=== PATIENT | female | born 1975 | race Caucasian/White ===

== ENCOUNTER 2020-11-27 11:48 | Inpatient (IN) | payer OTHER ==
[2020-11-27 14:15] LABS: BASOPHIL 0.4 % (0-2); EOSINOPHIL 0.1 % (0-5); HCT 43.7 % (37.0-47.0); HGB 14.3 g/dl (12.5-16.0); LYMPHOCYTE 12.4 % (15-48); MCH 29.9 pg (25.0-31.0); MCHC 32.7 g/dL (32.0-36.0); MCV 91.4 fL (78.0-100.0); MONOCYTE 8.1 % (0-12); MPV 10.2 fL (6.0-9.5); NEUTROPHIL 78.6 % (41-80); NRBC 0; PLT 211 K/uL (150-400); RBC 4.78 M/uL (4.20-5.40); RDW 14.6 % (11.5-14.0); WBC 16.3 K/uL (4.0-10.5)
[2020-11-27 14:34] LABS: BILIRUBIN - TOTAL 2.7 mg/dL (0.2-1.0); BUN/CREAT RATIO (CALC) 18.1 RATIO; CREATININE 0.72 mg/dL (0.51-0.95); POTASSIUM 4.6 mmol/L (3.5-5.1)
[2020-11-27 15:28] LABS: ECSTASY (MDMA) NEGATIVE (NEGATIVE); MARIJUANA (THC) NEGATIVE (NEGATIVE); METHADONE NEGATIVE (NEGATIVE); OPIATES NEGATIVE (NEGATIVE)
[2020-11-27 15:29] LABS: AMPHETAMINES POSITIVE (NEGATIVE); BARBITURATES NEGATIVE (NEGATIVE); OXYCODONE NEGATIVE (NEGATIVE)
[2020-11-27] MEDS ORDERED: AMLODIPINE BESYL5 MG PO (20:03)
[2020-11-27] MEDS ORDERED: CLARITIN10 MG PO (20:04)
[2020-11-27] MEDS ORDERED: COZAAR100 MG PO (20:05)
[2020-11-27] MEDS ORDERED: DIAZEPAM5 MG PO (20:07)
[2020-11-28 06:54] LABS: BASOPHIL 0.4 % (0-2); EOSINOPHIL 0.1 % (0-5); HCT 41.8 % (37.0-47.0); HGB 13.7 g/dl (12.5-16.0); LYMPHOCYTE 13.7 % (15-48); MCH 30.2 pg (25.0-31.0); MCHC 32.8 g/dL (32.0-36.0); MCV 92.1 fL (78.0-100.0); MONOCYTE 8.7 % (0-12); MPV 10.5 fL (6.0-9.5); NEUTROPHIL 76.5 % (41-80); NRBC 0; PLT 195 K/uL (150-400); RBC 4.54 M/uL (4.20-5.40); RDW 14.6 % (11.5-14.0); WBC 17.1 K/uL (4.0-10.5)
[2020-11-28 07:10] LABS: ALBUMIN 2.7 g/dL (3.4-5.0); BILIRUBIN - TOTAL 2.4 mg/dL (0.2-1.0); CREATININE 0.88 mg/dL (0.51-0.95); GLOBULIN (CALCULATION) 2.9 g/dL; POTASSIUM 3.9 mmol/L (3.5-5.1); TOTAL PROTEIN 5.6 g/dL (6.4-8.2)
[2020-11-28 07:25] LABS: CKMB 0.6 ng/mL (0.0-3.6)
[2020-11-29 05:07] LABS: BUN/CREAT RATIO (CALC) 27.1 RATIO; CREATININE 0.85 mg/dL (0.51-0.95); MAGNESIUM 2.2 mg/dL (1.8-2.4); POTASSIUM 4.2 mmol/L (3.5-5.1)
--- NOTE | 2020-11-29 15:37 | NUR ---
11/29/20 Patient has been accepted to [facility] pending bed availability.
[2020-11-29] MEDS ORDERED: LOPRESSOR25 MG PO (20:20)
== END 2020-11-30 10:30 | disposition other institution (70) | DRG 280 ==
LOC: FER 11:48 → FTCU 15:44
PROVIDERS: Internal Medicine Cardiovascular Disease; Nurse Practitioner; Nurse Practitioner Family; ADMIT Internal Medicine
DX: I11.0 Hypertensive heart disease with heart failure (principal); J18.9 Pneumonia, unspecified organism; I21.A1 Myocardial infarction type 2; I50.20 Unspecified systolic (congestive) heart failure; I25.10 Atherosclerotic heart disease of native coronary artery without angina pectoris; Z20.822 Contact with and (suspected) exposure to COVID-19; I42.8 Other cardiomyopathies; R91.8 Other nonspecific abnormal finding of lung field; F17.210 Nicotine dependence, cigarettes, uncomplicated; Z79.899 Other long term (current) drug therapy
CPT/HCPCS: 36415; 71045; 71275; 80048; 80053; 80061; 80305; 82553; 83605; 83735; 83880; 84145; 84484; 85025; 85379; 93005; 94640; J1650; J1940; J2060; J2270; J2543; Q9967; U0002

== ENCOUNTER 2020-12-19 20:26 | Emergency (ER) | payer OTHER ==
[~2020-12-19 20:26] MED LIST: AMLODIPINE BESYL5 MG PO; CLARITIN10 MG PO; COZAAR100 MG PO; DIAZEPAM5 MG PO; LOPRESSOR25 MG PO
[2020-12-19 20:59] LABS: BASOPHIL 0.5 % (0-2); EOSINOPHIL 1.5 % (0-5); HCT 43.9 % (37.0-47.0); HGB 14.1 g/dl (12.5-16.0); LYMPHOCYTE 28.1 % (15-48); MCH 29.1 pg (25.0-31.0); MCHC 32.1 g/dL (32.0-36.0); MCV 90.7 fL (78.0-100.0); MONOCYTE 8.6 % (0-12); MPV 10.1 fL (6.0-9.5); NRBC 0; PLT 239 K/uL (150-400); RBC 4.84 M/uL (4.20-5.40); RDW 14.5 % (11.5-14.0); WBC 10.2 K/uL (4.0-10.5)
[2020-12-19 21:11] LABS: ALBUMIN 3.2 g/dL (3.4-5.0); CREATININE 1.04 mg/dL (0.51-0.95); GLOBULIN (CALCULATION) 3.3 g/dL; POTASSIUM 4.3 mmol/L (3.5-5.1); TOTAL PROTEIN 6.5 g/dL (6.4-8.2)
[2020-12-19 21:19] LABS: PRO-BNP 6239 pg/mL (<125)
[2020-12-19 21:50] LABS: BILIRUBIN NEGATIVE (NEGATIVE); BLOOD NEGATIVE Ery/uL (NEGATIVE); CLARITY CLEAR (CLEAR); COLOR YELLOW (YELLOW); GLUCOSE (U) NORMAL (NORMAL); LEUKOCYTES NEGATIVE Leu/uL (NEGATIVE); NITRITE NEGATIVE (NEGATIVE); PROTEIN TRACE (LOW) mg/dL (NEGATIVE)
[2020-12-20] MEDS ORDERED: VIBRAMYCIN100 MG PO (03:00)
[2020-12-20] MEDS ORDERED: LASIX40 MG PO (03:00)
== END 2020-12-20 03:16 | disposition home or self-care (01) ==
LOC: FER 20:26
PROVIDERS: Emergency Medicine Emergency Medical Services
DX: I11.0 Hypertensive heart disease with heart failure (principal); I50.9 Heart failure, unspecified; I43 Cardiomyopathy in diseases classified elsewhere; Z20.822 Contact with and (suspected) exposure to COVID-19; Z95.1 Presence of aortocoronary bypass graft
CPT/HCPCS: 36415; 71045; 71250; 80053; 81003; 82150; 83690; 83880; 84484; 85025; 93005; J1940; J2405; J3360; U0002

== ENCOUNTER 2021-02-19 16:51 | Inpatient (IN) | payer OTHER ==
[~2021-02-19] VITALS: Ht 165.1 cm; Wt 87.7 kg
[~2021-02-19 16:51] MED LIST changes: +LASIX40 MG PO; +VIBRAMYCIN100 MG PO
[2021-02-19 18:01] LABS: BILIRUBIN NEGATIVE (NEGATIVE); BLOOD TRACE-INTACT Ery/uL (NEGATIVE); CLARITY CLEAR (CLEAR); COLOR YELLOW (YELLOW); GLUCOSE (U) NORMAL (NORMAL); LEUKOCYTES NEGATIVE Leu/uL (NEGATIVE); NITRITE NEGATIVE (NEGATIVE); PROTEIN 1+ mg/dL (NEGATIVE); SPECIFIC GRAVITY >=1.030 (1.001-1.030); UROBILINOGEN 0.2 mg/dL (0.2-1.0)
[2021-02-19 18:17] LABS: BACTERIA 3+; SQUAMOUS EPITHELIAL CELLS >50; URINARY RBC RARE; URINARY WBC RARE
[2021-02-19 18:24] LABS: BASOPHIL 0.6 % (0-2); EOSINOPHIL 1.2 % (0-5); HCT 41.8 % (37.0-47.0); HGB 13.6 g/dl (12.5-16.0); LYMPHOCYTE 27.1 % (15-48); MCH 29.2 pg (25.0-31.0); MCHC 32.5 g/dL (32.0-36.0); MCV 89.9 fL (78.0-100.0); MONOCYTE 8.5 % (0-12); MPV 11.1 fL (6.0-9.5); NEUTROPHIL 62.4 % (41-80); NRBC 0; PLT 206 K/uL (150-400); RBC 4.65 M/uL (4.20-5.40); WBC 8.6 K/uL (4.0-10.5)
[2021-02-19 18:33] LABS: INR 1.16 (0.9-1.2); PROTHROMBIN TIME 14.2 SECONDS (11.8-13.4); PTT 27.9 SECONDS (24.4-34.7)
[2021-02-19 18:42] LABS: ALBUMIN 3.2 g/dL (3.4-5.0); BILIRUBIN - TOTAL 0.9 mg/dL (0.2-1.0); BUN/CREAT RATIO (CALC) 18.1 RATIO; CREATININE 0.83 mg/dL (0.51-0.95); GLOBULIN (CALCULATION) 3.5 g/dL; POTASSIUM 4.8 mmol/L (3.5-5.1); TOTAL PROTEIN 6.7 g/dL (6.4-8.2)
[2021-02-19 18:49] LABS: PRO-BNP 6271 pg/mL (<125)
[2021-02-19 20:05] LABS: AMPHETAMINES NEGATIVE (NEGATIVE); BARBITURATES NEGATIVE (NEGATIVE); ECSTASY (MDMA) NEGATIVE (NEGATIVE); MARIJUANA (THC) POSITIVE (NEGATIVE); METHADONE NEGATIVE (NEGATIVE); OPIATES NEGATIVE (NEGATIVE); OXYCODONE NEGATIVE (NEGATIVE)
[2021-02-19] MEDS ORDERED: PROAIR HFA8.5 GM INH (20:48)
[2021-02-19] MEDS ORDERED: AMOXICILLIN500 M2 PO (20:48)
[2021-02-19] MEDS ORDERED: MEDROL 4MG DOSEP4 MG PO (20:48)
[2021-02-19] MEDS ORDERED: ATIVAN0.5 MG PO (23:11)
[2021-02-19] MEDS ORDERED: ZOLOFT50 MG PO (23:12)
[2021-02-19] MEDS ORDERED: BUSPIRONE HCL15 MG PO (23:12)
[2021-02-19] MEDS ORDERED: ENTRESTO 49 MG1 EACH PO (23:14)
[2021-02-19] MEDS ORDERED: NEURONTIN400 MG PO (23:14)
[2021-02-20 07:20] LABS: BASOPHIL 0.5 % (0-2); EOSINOPHIL 1.1 % (0-5); HCT 39.2 % (37.0-47.0); HGB 12.8 g/dl (12.5-16.0); LYMPHOCYTE 27.9 % (15-48); MCHC 32.7 g/dL (32.0-36.0); MCV 88.9 fL (78.0-100.0); MONOCYTE 8.9 % (0-12); MPV 10.5 fL (6.0-9.5); NEUTROPHIL 61.4 % (41-80); NRBC 0; PLT 168 K/uL (150-400); RBC 4.41 M/uL (4.20-5.40); RDW 17.1 % (11.5-14.0); WBC 8.1 K/uL (4.0-10.5)
[2021-02-20 07:43] LABS: BUN/CREAT RATIO (CALC) 18.4 RATIO; CREATININE 0.87 mg/dL (0.51-0.95); POTASSIUM 4.5 mmol/L (3.5-5.1)
[2021-02-20 07:57] LABS: CKMB 1.1 ng/mL (0.0-3.6)
[2021-02-20] MEDS ORDERED: KLOR-CON M20 T20 MEQ PO (16:51)
[2021-02-20] MEDS ORDERED: FUROSEMIDE 20MG20 MG PO (16:51)
--- NOTE | 2021-02-20 17:09 | NUR ---
02/20/21 Ms. Martínez lives alone. She is not employed and supporting herself from her savings. She recently received a letter of denial for her SSD application. Ms. Martínez reports that the medical records submitted to did not include her last echo results. She has an EF of 10 - 15%. - Ms. Martínez was advised to the appeal process.
== END 2021-02-20 16:24 | disposition home or self-care (01) | DRG 291 ==
LOC: FER 16:51 → FMS 20:44
PROVIDERS: Emergency Medicine; Nurse Practitioner; ADMIT Internal Medicine
DX: I11.0 Hypertensive heart disease with heart failure (principal); I50.23 Acute on chronic systolic (congestive) heart failure; I25.10 Atherosclerotic heart disease of native coronary artery without angina pectoris; I42.0 Dilated cardiomyopathy; F17.210 Nicotine dependence, cigarettes, uncomplicated; Z20.822 Contact with and (suspected) exposure to COVID-19; F41.8 Other specified anxiety disorders; Z79.899 Other long term (current) drug therapy; Z95.0 Presence of cardiac pacemaker; Z80.0 Family history of malignant neoplasm of digestive organs; Z83.6 Family history of other diseases of the respiratory system; Z80.3 Family history of malignant neoplasm of breast
CPT/HCPCS: 36415; 71250; 80048; 80053; 80061; 80305; 81001; 82553; 83615; 83735; 83880; 84484; 85025; 85610; 85730; 93005; 94010; 94640; U0002

== ENCOUNTER 2021-09-26 11:38 | Emergency (ER) | payer OTHER ==
[~2021-09-26 11:38] MED LIST changes: +AMOXICILLIN500 M2 PO; +ATIVAN0.5 MG PO; +BUSPIRONE HCL15 MG PO; +ENTRESTO 49 MG1 EACH PO; +FUROSEMIDE 20MG20 MG PO; +KLOR-CON M20 T20 MEQ PO; +MEDROL 4MG DOSEP4 MG PO; +NEURONTIN400 MG PO; +PROAIR HFA8.5 GM INH; +ZOLOFT50 MG PO
[2021-09-26 12:09] LABS: BASOPHIL 0.5 % (0-2); HCT 42.8 % (37.0-47.0); HGB 14.8 g/dl (12.5-16.0); LYMPHOCYTE 27.2 % (15-48); MCH 31.2 pg (25.0-31.0); MCHC 34.6 g/dL (32.0-36.0); MCV 90.3 fL (78.0-100.0); MONOCYTE 10.2 % (0-12); MPV 10.1 fL (6.0-9.5); NEUTROPHIL 60.7 % (41-80); NRBC 0; PLT 220 K/uL (150-400); RBC 4.74 M/uL (4.20-5.40); RDW 12.3 % (11.5-14.0); WBC 10.1 K/uL (4.0-10.5)
[2021-09-26 12:19] LABS: ALBUMIN 4.2 g/dL (3.4-5.0); BUN/CREAT RATIO (CALC) 22.2 RATIO; CREATININE 0.81 mg/dL (0.51-0.95); GLOBULIN (CALCULATION) 3.3 g/dL; POTASSIUM 3.6 mmol/L (3.5-5.1); TOTAL PROTEIN 7.5 g/dL (6.4-8.2)
[2021-09-26 12:28] LABS: CKMB 2.6 ng/mL (0.0-3.6)
[2021-09-26 12:40] LABS: INR 0.99 (0.9-1.2); PROTHROMBIN TIME 12.5 SECONDS (11.8-13.4); PTT 25.9 SECONDS (24.4-34.7)
== END 2021-09-26 13:53 | disposition home or self-care (01) ==
LOC: FER 11:38
PROVIDERS: Emergency Medicine
DX: R07.89 Other chest pain (principal); I11.0 Hypertensive heart disease with heart failure; I50.9 Heart failure, unspecified; F17.200 Nicotine dependence, unspecified, uncomplicated; Z79.899 Other long term (current) drug therapy
CPT/HCPCS: 36415; 70450; 71046; 80053; 82553; 83880; 84484; 85025; 85610; 85730; 93005